=== PATIENT | male | born 1965 | race Caucasian/White ===

== ENCOUNTER 2017-11-29 15:12 | Emergency (ER) | payer OTHER ==
[2017-11-29] MEDS: DEXAMETHASONE 10 MG/ML 1 ML INJ IV (16:36)
[2017-11-29] MEDS: morphine 4 MG/ML VIAL IV (16:36)
[2017-11-29] MEDS: CEFTRIAXONE 1 GM/50 ML (PMX) 50 ML IVPB (16:36)
== END 2017-11-29 17:49 | disposition home or self-care (01) ==
LOC: FTE 17:49
DX: L03.116 Cellulitis of left lower limb (principal)
CPT/HCPCS: 96374; 96375; 99284-25